=== PATIENT | male | born 1945 | race Caucasian/White ===

== ENCOUNTER 2024-10-26 09:17 | Inpatient (IN) | payer MEDICARE ==
[~2024-10-26] VITALS: Ht 175.3 cm; Wt 84.5 kg
[2024-10-26] MEDS: ONDANSETRON HCL/PF 4 MG/2 ML VIAL IVP ONE (09:32)
[2024-10-26] MEDS: IV NS 0.9% 1,000 ML BAG IV ONE (09:32)
[2024-10-26 10:03] LABS: BASOPHILS # (AUTO) 0.1 K/uL (0.0-0.2); BASOPHILS % (AUTO) 0.5 % (0.0-2.0); EOSINOPHILS # (AUTO) 0.1 K/uL (0.0-0.7); EOSINOPHILS % (AUTO) 1.1 % (0.0-6.0); HEMATOCRIT 41 % (39-51); HEMOGLOBIN 13.6 g/dL (13.5-17.5); LYMPHOCYTES # (AUTO) 1.2 K/uL (0.8-4.8); LYMPHOCYTES % (AUTO) 10.8 % (20.0-44.0); MEAN CORPUSCULAR HEMOGLOBIN 27 PG (26.0-33.0); MEAN CORPUSCULAR HGB CONC 33 g/dl (31.0-36.0); MEAN CORPUSCULAR VOLUME 82 fL (80-96); MONOCYTES # (AUTO) 0.8 K/uL (0.1-1.30); MONOCYTES % (AUTO) 7.2 % (2.0-12.0); NEUTROPHILS % (AUTO) 80.4 % (43.0-81.0); PLATELET COUNT (AUTO) 335 K/uL (150-450); RED BLOOD CELL COUNT(AUTO) 5.07 MIL/uL (4.5-6.0); RED CELL DISTRIBUTION WIDTH 15.8 % (11.5-15.0); WHITE BLOOD COUNT (AUTO) 11.2 K/uL (4.3-11.0)
[2024-10-26 10:11] LABS: CALCIUM, SERUM 9.9 mg/dL (8.5-10.1); CARBON DIOXIDE 29 mmol/L (21-32); CHLORIDE 100 mmol/L (98-107); GLUCOSE 151 mg/dL (74-106); POTASSIUM 4.3 mmol/L (3.5-5.1); SODIUM SERUM 137 mmol/L (136-145); UREA NITROGEN, BLOOD 23 mg/dL (7-18)
[2024-10-26 10:16] LABS: ALANINE AMINOTRANSFERASE 28 U/L (12-78); ALBUMIN 3.4 g/dL (3.4-5.0); ALKALINE PHOSPHATASE 170 U/L (46-116); ASPARTATE AMINOTRANSFERASE 24 U/L (15-37); BILIRUBIN,DIRECT 0.1 mg/dL (0.0-0.2); BILIRUBIN,TOTAL 0.6 mg/dL (0.2-1.0); INR 0.99 (0.91-1.10); PARTIAL THROMBOPLASTIN TIME 26.5 SEC (24.3-34.3); PROTHROMBIN TIME 10.5 SECS (9.2-11.1); TOTAL PROTEIN, SERUM 7.1 g/dL (6.4-8.2)
[2024-10-26 10:20] LABS: ALCOHOL, BLOOD < 3 mg/dL (0-10)
[2024-10-26 14:28] LABS: APPEARANCE,URINE CLEAR (CLEAR); BILIRUBIN,URINE NEGATIVE (NEGATIVE); BLOOD, URINE NEGATIVE Ery/uL (NEGATIVE); COLOR,URINE YELLOW (YELLOW); KETONES,URINE NEGATIVE (NEGATIVE); LEUKOCYTE ESTERASE ,URINE NEGATIVE (NEGATIVE); NITRITE, URINE NEGATIVE (NEGATIVE); PROTEIN,URINE NEGATIVE (NEGATIVE); UGLUCOSE NEGATIVE (NEGATIVE); UROBILINOGEN,URINE 0.2 EU/dL (0.2)
[2024-10-26 14:42] LABS: AMPHETAMINE, URINE NEGATIVE (NEGATIVE); BARBITURATE, URINE NEGATIVE (NEGATIVE); BENZODIAZEPINE, URINE NEGATIVE (NEGATIVE); CANNABINOID, URINE NEGATIVE (NEGATIVE); COCCAINE, URINE NEGATIVE (NEGATIVE); OPIATE, URINE NEGATIVE (NEGATIVE); PHENCYCLIDINE SCREEN,URINE NEGATIVE (NEGATIVE)
[2024-10-26] MEDS ORDERED: ONDANSETRON HCL/PF 4 MG/2 ML VIAL IVP PRN (16:30)
[2024-10-26] MEDS ORDERED: MAG HYDROX/AL HYDROX/SIMETH 30 ML UDC PO PRN (16:30)
[2024-10-26] MEDS ORDERED: ACETAMINOPHEN 325 MG TABLET PO PRN (16:30)
[2024-10-26] MEDS ORDERED: MAGNESIUM HYDROXIDE 30 ML UDC PO PRN (16:30)
[2024-10-26] MEDS ORDERED: Z GUARD REMEDY 4 OZ OINT TP PRN (16:30)
[2024-10-26] MEDS ORDERED: TEST200V3 IM (16:46)
[2024-10-26] MEDS ORDERED: POLY17PO4 PO (16:46)
[2024-10-26] MEDS ORDERED: SERT100T12 PO (16:46)
[2024-10-26] MEDS ORDERED: ZOLP10TA2 PO (16:46)
[2024-10-26] MEDS ORDERED: CHOL500062 PO (16:46)
[2024-10-26] MEDS ORDERED: ATOR40TA PO (16:46)
[2024-10-26] MEDS ORDERED: TRAZ-182 PO (16:46)
[2024-10-26] MEDS ORDERED: HYDR50TA61 PO (16:46)
[2024-10-26] MEDS ORDERED: SENN-261 PO (16:46)
[2024-10-26] MEDS ORDERED: OMEG-110 PO (16:46)
[2024-10-26] MEDS ORDERED: ATEN50TA PO (16:46)
[2024-10-26] MEDS ORDERED: LUTE20CA PO (16:46)
[2024-10-26] MEDS ORDERED: LEVO100T9 PO (16:46)
[2024-10-26] MEDS ORDERED: TRAZODONE 50 MG TABLET PO PRN (17:00)
[2024-10-26 20:00] VITALS: BP 155/56; TEMP 97.3; O2SAT 96
[2024-10-26 20:44] VITALS: BP 155/56; TEMP 97.3; O2SAT 96
[2024-10-26] MEDS: ATORVASTATIN 40 MG TABLET PO SCH (21:28)
[2024-10-26] MEDS: IV NS 0.9% 1,000 ML IV PRN (22:34)
[2024-10-27 07:15] LABS: CALCIUM, SERUM 9.1 mg/dL (8.5-10.1); CREATININE 0.7 mg/dL (0.6-1.3); MAGNESIUM 2.3 mg/dL (1.8-2.4); PHOSPHORUS 4.5 mg/dL (2.5-4.9); POTASSIUM 3.8 mmol/L (3.5-5.1)
[2024-10-27 07:30] VITALS: BP 190/61; TEMP 98.3; O2SAT 97
[2024-10-27] MEDS ORDERED: LEVOTHYROXINE SODIUM 100 MCG TABLET PO SCH (07:30)
[2024-10-27] MEDS: LEVOTHYROXINE SODIUM 112 MCG TABLET PO SCH (07:45)
[2024-10-27] MEDS: SERTRALINE HCL 50 MG TABLET PO SCH (08:14)
[2024-10-27] MEDS: SENNOSIDES 8.6 MG TABLET PO SCH (08:15)
[2024-10-27] MEDS: CHOLECALCIFEROL 1,000 UNIT TABLET (VIT D3) PO SCH (08:15)
[2024-10-27] MEDS: POLYETHYLENE GLYCOL 3350 17 GM POWD.PACK PO SCH (08:15)
[2024-10-27] MEDS: ATENOLOL 50 MG TABLET PO SCH (08:16)
[2024-10-27] MEDS ORDERED: Medication Not On Formulary EA (Omega-3 Fatty Acids/Fish Oil (Fish Oil 1,200 Mg Softgel) PO SCH (09:00)
[2024-10-27] MEDS ORDERED: Medication Not On Formulary EA (Lutein 20 MG) PO SCH (09:00)
[2024-10-27] MEDS: LIDOCAINE 5% (PATCH) 1 EA PATCH TP SCH (12:03)
[2024-10-27 13:45] LABS: BASOPHILS # (AUTO) 0.1 K/uL (0.0-0.2); BASOPHILS % (AUTO) 0.6 % (0.0-2.0); EOSINOPHILS # (AUTO) 0.3 K/uL (0.0-0.7); EOSINOPHILS % (AUTO) 2.7 % (0.0-6.0); HEMATOCRIT 40 % (39-51); HEMOGLOBIN 13.5 g/dL (13.5-17.5); LYMPHOCYTES # (AUTO) 1.2 K/uL (0.8-4.8); LYMPHOCYTES % (AUTO) 12.7 % (20.0-44.0); MEAN CORPUSCULAR HEMOGLOBIN 28 PG (26.0-33.0); MEAN CORPUSCULAR HGB CONC 34 g/dl (31.0-36.0); MEAN CORPUSCULAR VOLUME 81 fL (80-96); MONOCYTES # (AUTO) 0.8 K/uL (0.1-1.30); MONOCYTES % (AUTO) 8.2 % (2.0-12.0); NEUTROPHILS # (AUTO) 7.1 K/uL (1.8-8.9); NEUTROPHILS % (AUTO) 75.8 % (43.0-81.0); PLATELET COUNT (AUTO) 362 K/uL (150-450); RED BLOOD CELL COUNT(AUTO) 4.89 MIL/uL (4.5-6.0); WHITE BLOOD COUNT (AUTO) 9.4 K/uL (4.3-11.0)
[2024-10-27 16:51] VITALS: BP 149/50; TEMP 97.7; O2SAT 96
[2024-10-27 20:00] VITALS: BP 152/65; TEMP 97.9; O2SAT 97
[2024-10-28 06:26] LABS: BASOPHILS % (AUTO) 0.5 % (0.0-2.0); EOSINOPHILS # (AUTO) 0.2 K/uL (0.0-0.7); EOSINOPHILS % (AUTO) 2.5 % (0.0-6.0); HEMATOCRIT 39 % (39-51); LYMPHOCYTES # (AUTO) 1.3 K/uL (0.8-4.8); LYMPHOCYTES % (AUTO) 15.8 % (20.0-44.0); MEAN CORPUSCULAR HEMOGLOBIN 27 PG (26.0-33.0); MEAN CORPUSCULAR HGB CONC 33 g/dl (31.0-36.0); MEAN CORPUSCULAR VOLUME 81 fL (80-96); MONOCYTES # (AUTO) 0.6 K/uL (0.1-1.30); MONOCYTES % (AUTO) 7.4 % (2.0-12.0); NEUTROPHILS # (AUTO) 6.1 K/uL (1.8-8.9); NEUTROPHILS % (AUTO) 73.8 % (43.0-81.0); PLATELET COUNT (AUTO) 271 K/uL (150-450); RED BLOOD CELL COUNT(AUTO) 4.79 MIL/uL (4.5-6.0); RED CELL DISTRIBUTION WIDTH 15.5 % (11.5-15.0); WHITE BLOOD COUNT (AUTO) 8.2 K/uL (4.3-11.0)
[2024-10-28 07:12] LABS: CALCIUM, SERUM 8.8 mg/dL (8.5-10.1); CREATININE 0.8 mg/dL (0.6-1.3); POTASSIUM 3.9 mmol/L (3.5-5.1)
[2024-10-28 08:00] VITALS: BP 165/51; TEMP 97.7; O2SAT 97
[2024-10-28] MEDS: HYDROCODONE/APAP 10/325MG TABLET PO PRN (08:25)
[2024-10-28 10:00] VITALS: BP 144/55; TEMP 97.7; O2SAT 97
[2024-10-28] MEDS ORDERED: LIDO30AD10 TP (11:27)
[2024-10-28] MEDS ORDERED: TRAM50TA2 PO (11:27)
[2024-10-28] MEDS ORDERED: LEVO112T5 PO (11:27)
[2024-10-28 16:00] VITALS: BP 156/58; TEMP 97.5; O2SAT 97
[2024-10-28 16:05] VITALS: BP 156/58; TEMP 97.5; O2SAT 97
== END 2024-10-28 16:51 | disposition home health service (06) | DRG 535 ==
LOC: ER 09:36 → MED 16:38
PROVIDERS: ADMIT Nurse Practitioner Acute Care; ATTEND Nurse Practitioner Acute Care
DX: S32.482A Displaced dome fracture of left acetabulum, initial encounter for closed fracture (principal); G93.41 Metabolic encephalopathy; S22.31XA Fracture of one rib, right side, initial encounter for closed fracture; S32.592K Other specified fracture of left pubis, subsequent encounter for fracture with nonunion; F03.93 Unspecified dementia, unspecified severity, with mood disturbance; W18.30XA Fall on same level, unspecified, initial encounter; Y92.092 Bedroom in other non-institutional residence as the place of occurrence of the external cause; W19.XXXD Unspecified fall, subsequent encounter; E03.9 Hypothyroidism, unspecified; E78.5 Hyperlipidemia, unspecified; I10 Essential (primary) hypertension; D72.829 Elevated white blood cell count, unspecified; G93.89 Other specified disorders of brain; I48.91 Unspecified atrial fibrillation; E66.01 Morbid (severe) obesity due to excess calories; E86.0 Dehydration; R79.89 Other specified abnormal findings of blood chemistry; W19.XXXA Unspecified fall, initial encounter; Z88.0 Allergy status to penicillin; Z91.81 History of falling; F32.A Depression, unspecified
CPT/HCPCS: 36415; 70450-TC; 71045-TC; 71100-TC; 72125-TC; 72131-TC; 80048-TC; 80076-TC; 83735-TC; 84100-TC; 84443-TC; 85025-TC; 85730-TC; 93307-TC; 97110-TC; 97112-TC; 97530-TC; A4223; G0378; G0480; J7030

== ENCOUNTER 2025-01-12 18:36 | Inpatient (IN) | payer MEDICARE, OTHER ==
[~2025-01-12] VITALS: Ht 175.3 cm; Wt 87.5 kg
[~2025-01-12 18:36] MED LIST: ATEN50TA PO; ATOR40TA PO; CHOL500062 PO; LEVO112T5 PO; LIDO30AD10 TP; LUTE20CA PO; OMEG-110 PO; POLY17PO4 PO; SENN-261 PO; SERT100T12 PO; TEST200V3 IM; TRAM50TA2 PO; TRAZ-182 PO; ZOLP10TA2 PO
[2025-01-12 19:51] LABS: BASOPHILS % (AUTO) 0.4 % (0.0-2.0); EOSINOPHILS # (AUTO) 0.2 K/uL (0.0-0.7); EOSINOPHILS % (AUTO) 2.2 % (0.0-6.0); HEMATOCRIT 38 % (39-51); HEMOGLOBIN 12.7 g/dL (13.5-17.5); LYMPHOCYTES # (AUTO) 1.3 K/uL (0.8-4.8); LYMPHOCYTES % (AUTO) 14.6 % (20.0-44.0); MEAN CORPUSCULAR HEMOGLOBIN 28 PG (26.0-33.0); MEAN CORPUSCULAR HGB CONC 33 g/dl (31.0-36.0); MEAN CORPUSCULAR VOLUME 83 fL (80-96); MONOCYTES # (AUTO) 0.8 K/uL (0.1-1.30); MONOCYTES % (AUTO) 8.6 % (2.0-12.0); NEUTROPHILS # (AUTO) 6.5 K/uL (1.8-8.9); NEUTROPHILS % (AUTO) 74.2 % (43.0-81.0); PLATELET COUNT (AUTO) 264 K/uL (150-450); RED CELL DISTRIBUTION WIDTH 16.8 % (11.5-15.0); WHITE BLOOD COUNT (AUTO) 8.7 K/uL (4.3-11.0)
[2025-01-12] MEDS: IV NS 0.9% 1,000 ML BAG IV ONE ×2 (19:51→21:16)
[2025-01-12 20:00] LABS: CALCIUM, SERUM 9.1 mg/dL (8.5-10.1); CARBON DIOXIDE 32 mmol/L (21-32); CHLORIDE 105 mmol/L (98-107); CREATININE 1.1 mg/dL (0.6-1.3); GLUCOSE 112 mg/dL (74-106); POTASSIUM 4.5 mmol/L (3.5-5.1); SODIUM SERUM 140 mmol/L (136-145); UREA NITROGEN, BLOOD 35 mg/dL (7-18)
[2025-01-12 20:02] LABS: PARTIAL THROMBOPLASTIN TIME 25.9 SEC (24.3-34.3); PROTHROMBIN TIME 10.6 SECS (9.2-11.1)
[2025-01-12 20:07] LABS: ACETAMINOPHEN <10 ug/ml (10-30); ALANINE AMINOTRANSFERASE 29 U/L (12-78); ALBUMIN 3.4 g/dL (3.4-5.0); ALCOHOL, BLOOD < 3 mg/dL (0-10); ALKALINE PHOSPHATASE 126 U/L (46-116); ASPARTATE AMINOTRANSFERASE 19 U/L (15-37); BILIRUBIN,DIRECT 0.1 mg/dL (0.0-0.2); BILIRUBIN,TOTAL 0.4 mg/dL (0.2-1.0)
[2025-01-12 20:09] LABS: LACTIC ACID 2.2 mmol/L (0.4-2.0)
[2025-01-12 20:22] LABS: SERUM AMMONIA 5 umol/L (11-32)
[2025-01-12 21:00] LABS: APPEARANCE,URINE CLEAR (CLEAR); BILIRUBIN,URINE NEGATIVE (NEGATIVE); BLOOD, URINE NEGATIVE Ery/uL (NEGATIVE); COLOR,URINE YELLOW (YELLOW); KETONES,URINE NEGATIVE (NEGATIVE); LEUKOCYTE ESTERASE ,URINE NEGATIVE (NEGATIVE); NITRITE, URINE NEGATIVE (NEGATIVE); PROTEIN,URINE NEGATIVE (NEGATIVE); UGLUCOSE NEGATIVE (NEGATIVE); UROBILINOGEN,URINE 0.2 EU/dL (0.2)
[2025-01-12] MEDS ORDERED: MAGNESIUM HYDROXIDE 30 ML UDC PO PRN (21:00)
[2025-01-12] MEDS ORDERED: Z GUARD REMEDY 4 OZ OINT TP PRN (21:00)
[2025-01-12] MEDS ORDERED: ONDANSETRON HCL/PF 4 MG/2 ML VIAL IVP PRN (21:00)
[2025-01-12] MEDS ORDERED: MAG HYDROX/AL HYDROX/SIMETH 30 ML UDC PO PRN (21:00)
[2025-01-12 21:10] LABS: AMPHETAMINE, URINE NEGATIVE (NEGATIVE); BARBITURATE, URINE NEGATIVE (NEGATIVE); BENZODIAZEPINE, URINE NEGATIVE (NEGATIVE); CANNABINOID, URINE NEGATIVE (NEGATIVE); COCCAINE, URINE NEGATIVE (NEGATIVE); OPIATE, URINE POSITIVE (NEGATIVE); PHENCYCLIDINE SCREEN,URINE NEGATIVE (NEGATIVE)
[2025-01-12] MEDS: LEVOFLOXACIN 750 MG /D5W 150ML PIGGYBACK IV ONE (21:16)
[2025-01-12 22:40] VITALS: BP 178/64; TEMP 97.3; O2SAT 98
[2025-01-13] VITALS: BP_SYST 180; BP_SYST 182; BP_DIAS 72; BP_DIAS 76; TEMP 97.3; O2SAT 96
[2025-01-13] MEDS: hydrALAZINE HCL IV 20 MG VIAL IV PRN (01:08)
[2025-01-13 07:00] VITALS: BP 173/75; TEMP 99; O2SAT 96
[2025-01-13] MEDS: PANTOPRAZOLE 40 MG TABLET.DR PO SCH (07:30)
[2025-01-13] MEDS ORDERED: HYDR-500 PO (08:44)
[2025-01-13] MEDS ORDERED: NIFE-35 PO (08:44)
[2025-01-13] MEDS ORDERED: LEVO112T7 PO (08:44)
[2025-01-13] MEDS ORDERED: SERT50TA12 PO (08:44)
[2025-01-13] MEDS ORDERED: Medication Not On Formulary EA (Omega-3 Fatty Acids/Fish Oil (Fish Oil 1,200 Mg Softgel) PO SCH (12:30)
[2025-01-13] MEDS: NIFEdipine XL (30MG) 30 MG TAB PO SCH (13:01)
[2025-01-13] MEDS: LEVOTHYROXINE SODIUM 112 MCG TABLET PO SCH (13:01)
[2025-01-13] MEDS: ATENOLOL 50 MG TABLET PO SCH (13:02)
[2025-01-13 13:30] VITALS: BP 155/68; TEMP 98.9; O2SAT 97
[2025-01-13 16:00] VITALS: BP 170/77; TEMP 98.8; O2SAT 97
[2025-01-13] MEDS: SERTRALINE HCL 50 MG TABLET PO SCH (16:10)
[2025-01-13 20:00] VITALS: BP 152/62; TEMP 97.5; O2SAT 95
[2025-01-13] MEDS: LEVOFLOXACIN 750 MG /D5W 150ML 750 MG in PREMIX 1 EA IV SCH (21:15)
[2025-01-13] MEDS: ATORVASTATIN 40 MG TABLET PO SCH (21:15)
[2025-01-14 08:00] VITALS: BP 158/69; TEMP 98.1; O2SAT 96
[2025-01-14] MEDS: hydrOXYzine PAMOATE 25 MG CAPSULE PO PRN (15:01)
[2025-01-14 16:00] VITALS: BP 120/60; TEMP 97.7; O2SAT 96
[2025-01-14 16:27] LABS: BASOPHILS % (AUTO) 0.3 % (0.0-2.0); EOSINOPHILS # (AUTO) 0.1 K/uL (0.0-0.7); EOSINOPHILS % (AUTO) 1.6 % (0.0-6.0); HEMATOCRIT 36 % (39-51); HEMOGLOBIN 12.1 g/dL (13.5-17.5); LYMPHOCYTES % (AUTO) 12.8 % (20.0-44.0); MEAN CORPUSCULAR HEMOGLOBIN 29 PG (26.0-33.0); MEAN CORPUSCULAR HGB CONC 34 g/dl (31.0-36.0); MEAN CORPUSCULAR VOLUME 84 fL (80-96); MONOCYTES # (AUTO) 0.9 K/uL (0.1-1.30); MONOCYTES % (AUTO) 11.3 % (2.0-12.0); PLATELET COUNT (AUTO) 274 K/uL (150-450); RED BLOOD CELL COUNT(AUTO) 4.24 MIL/uL (4.5-6.0); RED CELL DISTRIBUTION WIDTH 16.8 % (11.5-15.0); WHITE BLOOD COUNT (AUTO) 8.1 K/uL (4.3-11.0)
[2025-01-14 16:47] LABS: BILIRUBIN,TOTAL 0.6 mg/dL (0.2-1.0); CALCIUM, SERUM 8.8 mg/dL (8.5-10.1); CREATININE 1.2 mg/dL (0.6-1.3); MAGNESIUM 1.9 mg/dL (1.8-2.4); PHOSPHORUS 3.4 mg/dL (2.5-4.9); POTASSIUM 4.3 mmol/L (3.5-5.1); TOTAL PROTEIN, SERUM 6.4 g/dL (6.4-8.2)
[2025-01-14 20:00] VITALS: BP_SYST 112; BP_SYST 121; BP_DIAS 56; BP_DIAS 83; TEMP 98.4; TEMP 99.5; O2SAT 95
[2025-01-14] MEDS: TRAZODONE 50 MG TABLET PO SCH (21:29)
[2025-01-15 07:00] VITALS: BP 173/70; TEMP 97.5; O2SAT 97
[2025-01-15] MEDS: GABAPENTIN 100 MG CAPSULE PO SCH (09:00)
[2025-01-15] MEDS ORDERED: MECLIZINE HCL 12.5 MG TABLET PO PRN (10:30)
[2025-01-15] MEDS ORDERED: MECLIZINE HCL 25 MG TABLET PO PRN (10:30)
[2025-01-15 12:42] LABS: CHOLESTEROL 145 mg/dL (<200); HDL CHOLESTEROL 60 mg/dL (40-60); LDL 67 mg/dL (0-99); TRIGLYCERIDES 125 mg/dL (30-150)
[2025-01-15] MEDS: hydrALAZINE HCL 25 MG TABLET PO SCH (13:00)
[2025-01-15] MEDS: ACETAMINOPHEN 325 MG TABLET PO PRN (13:44)
[2025-01-15] MEDS: LEVOFLOXACIN (250MG) 250 MG TABLET PO SCH (22:24)
[2025-01-15] MEDS: TRAZODONE 50 MG TABLET PO SCH (23:05)
[2025-01-16 08:00] VITALS: BP 132/62; TEMP 98.2; O2SAT 95
[2025-01-16 12:24] VITALS: BP 132/62
[2025-01-16] MEDS ORDERED: MECL-159 PO (12:51)
[2025-01-16] MEDS ORDERED: GABA100C PO (12:51)
[2025-01-16] MEDS ORDERED: HYDR-4076 PO (12:51)
== END 2025-01-16 15:00 | disposition home health service (06) | DRG 73 ==
LOC: ER 18:42 → TELE 21:19 → MED 01-14 14:14
PROVIDERS: ATTEND Nurse Practitioner Acute Care
DX: G90.89 Other disorders of autonomic nervous system (principal); G93.41 Metabolic encephalopathy; E87.20 Acidosis, unspecified; N17.9 Acute kidney failure, unspecified; F03.90 Unspecified dementia, unspecified severity, without behavioral disturbance, psychotic disturbance, mood disturbance, and anxiety; I11.0 Hypertensive heart disease with heart failure; D64.9 Anemia, unspecified; E03.9 Hypothyroidism, unspecified; E78.5 Hyperlipidemia, unspecified; I48.91 Unspecified atrial fibrillation; Z88.0 Allergy status to penicillin; G62.9 Polyneuropathy, unspecified; R42 Dizziness and giddiness; F32.9 Major depressive disorder, single episode, unspecified; E11.43 Type 2 diabetes mellitus with diabetic autonomic (poly)neuropathy; I50.9 Heart failure, unspecified
CPT/HCPCS: 36415; 70450-TC; 71045-TC; 80048-TC; 80053-TC; 80061-TC; 80076-TC; 82140-TC; 82962-TC; 83605-TC; 83735-TC; 84100-TC; 84443-TC; 85025-TC; 85730-TC; 87040-TC; 87086-TC; 93880-TC; 97110-TC; 97116-TC; 97530-TC; 97535-TC; A4216; A4223; G0378; G0480; J0360; J1956; J7030; J7040; J7050; J8597; Q0177